=== PATIENT | male | born 1935 | race Caucasian/White ===

== ENCOUNTER 2022-03-19 11:54 | Outpatient (CLI) | payer OTHER | END 2022-03-19 11:55 | disposition home or self-care (01) | LOC: NAV RAD 11:54 | PROVIDERS: ATTEND Family Medicine | DX: M46.1 Sacroiliitis, not elsewhere classified (principal); R06.09 Other forms of dyspnea; M34.9 Systemic sclerosis, unspecified | CPT/HCPCS: 71046; 72170; 72202 ==

== ENCOUNTER 2022-06-16 09:56 | Inpatient (IN) | payer MEDICARE ==
[2022-06-16] MEDS ORDERED: Acetaminophen 325 MG TAB PO PRN (15:28)
[2022-06-16] MEDS ORDERED: Albuterol 200 PUFF (6.7GM INHALER) INH PRN (16:28)
[2022-06-16] MEDS ORDERED: Ondansetron ODT 4 MG TAB PO PRN (16:32)
[2022-06-16] MEDS: Atorvastatin Calcium 10 MG TAB PO SCH (20:26)
[2022-06-16] MEDS: Benzonatate 100 MG CAP PO SCH (20:26)
[2022-06-16] MEDS: guaiFENesin/DM ER PO SCH (20:26)
[2022-06-17] MEDS ORDERED: FLU VACC QS2022-23(65YR UP)/PF 240 MCG/0.7 ML SYRINGE IM ONE (09:00)
[2022-06-17] MEDS ORDERED: Lisinopril 10 MG TAB PO SCH ×2 (09:00→11:15)
[2022-06-17] MEDS: Fluticasone Propionate Nasal Spray 16 gm Bottle NASAL SCH (09:52)
[2022-06-17] MEDS: Zinc Sulfate 220 MG CAP PO SCH (09:54)
[2022-06-17] MEDS: guaiFENesin/DM ER PO SCH ×2 (09:54→21:20)
[2022-06-17] MEDS: Ascorbic Acid 500 mg Chewable Tablet PO SCH (09:54)
[2022-06-17] MEDS: Cholecalciferol 1,000 UNITS (25 MCG) TAB PO SCH (09:54)
[2022-06-17] MEDS: Aspirin 81 mg Enteric Coated Tablet PO SCH (09:55)
[2022-06-17] MEDS: Benzonatate 100 MG CAP PO SCH ×3 (09:55→21:20)
[2022-06-17 18:37] VITALS: BMI 34.0
[2022-06-17] MEDS: Atorvastatin Calcium 10 MG TAB PO SCH (21:20)
[2022-06-18 06:04] LABS: #Lymphocytes 0.8 thou/uL (1.20-3.40); #Monocytes 0.8 thou/uL (0.11-0.59); #Neutrophils 8.1 thou/uL (1.40-6.50); %Basophils 0.3 % (0.0-1.0); %Eosinophils 0.2 % (0.0-10.0); %Lymphocytes 8.1 % (21.0-51.0); %Monocytes 8.3 % (0.0-10.0); %Neutrophils 83.1 % (42.0-75.0); Mean Corpuscular HGB CONC 33.6 g/dL (32.0-36.0); Mean Corpuscular Hemoglobin 30.9 pg (27.0-31.0); Mean Corpuscular Volume 92.1 fl (78.0-98.0); Mean Platelet Volume 7.4 fL (7.4-10.4); Platelet Count 182 10x3/uL (130-400); RBC Distribution Width 12.2 % (11.5-14.5); Red Blood Cell (RBC) Count 4.21 mill/uL (4.70-6.10); White Blood Cell (WBC) Count 9.7 10x3/uL (4.8-10.8)
[2022-06-18 06:07] LABS: Anion Gap 14 mmol/L (10-20); BUN (Urea Nitrogen) 23 mg/dL (8.4-25.7); Calc. Creatinine Clearance 80 mL/min (70-130); Calcium 8.3 mg/dL (7.8-10.44); Carbon Dioxide 20 mmol/L (23-31); Chloride 107 mmol/L (98-107); Estimated GFR 71; Glucose 120 mg/dL (83-110); Potassium 3.7 mmol/L (3.5-5.1); Sodium 137 mmol/L (136-145)
[2022-06-18] MEDS: Ascorbic Acid 500 mg Chewable Tablet PO SCH (09:49)
[2022-06-18] MEDS: guaiFENesin/DM ER PO SCH ×2 (09:50→22:15)
[2022-06-18] MEDS: Aspirin 81 mg Enteric Coated Tablet PO SCH (09:50)
[2022-06-18] MEDS: Lisinopril 10 MG TAB PO SCH (09:50)
[2022-06-18] MEDS: Zinc Sulfate 220 MG CAP PO SCH (09:50)
[2022-06-18] MEDS: Benzonatate 100 MG CAP PO SCH ×3 (09:51→22:15)
[2022-06-18] MEDS: Fluticasone Propionate Nasal Spray 16 gm Bottle NASAL SCH (09:51)
[2022-06-18] MEDS: Cholecalciferol 1,000 UNITS (25 MCG) TAB PO SCH (09:51)
[2022-06-18 19:56] LABS: Bilirubin Negative (Negative); Blood, Urine Negative (Negative); Glucose, Urine (Dipstick) Negative (Negative); Ketone, Urine Negative (Negative); Leukocyte Trace (Negative); Nitrite Negative (Negative); Protein, Urine (Dipstick) Trace mg/dL (Neg-Trace); pH, Urine 5.5 (5.0-9.0)
[2022-06-18 19:57] LABS: Clarity SL HAZY (Clear)
[2022-06-18 20:16] LABS: Bacteria/HPF 3+ HPF (None Seen); Squamous Epithelial 0-3 HPF (0-3)
[2022-06-18] MEDS: Atorvastatin Calcium 10 MG TAB PO SCH (22:15)
[2022-06-18] MEDS ORDERED: Ciprofloxacin 500 MG TAB PO SCH (23:15)
[2022-06-19] MEDS: Ciprofloxacin 500 MG TAB PO SCH ×2 (05:39→21:28)
[2022-06-19] MEDS: guaiFENesin/DM ER PO SCH ×2 (09:35→21:28)
[2022-06-19] MEDS: Benzonatate 100 MG CAP PO SCH ×3 (09:35→21:28)
[2022-06-19] MEDS: Cholecalciferol 1,000 UNITS (25 MCG) TAB PO SCH (09:35)
[2022-06-19] MEDS: Zinc Sulfate 220 MG CAP PO SCH (09:35)
[2022-06-19] MEDS: Ascorbic Acid 500 mg Chewable Tablet PO SCH (09:35)
[2022-06-19] MEDS: Lisinopril 10 MG TAB PO SCH (09:36)
[2022-06-19] MEDS: Fluticasone Propionate Nasal Spray 16 gm Bottle NASAL SCH (09:37)
[2022-06-19] MEDS: Aspirin 81 mg Enteric Coated Tablet PO SCH (09:38)
[2022-06-19] MEDS: Atorvastatin Calcium 10 MG TAB PO SCH (21:28)
[2022-06-19] MEDS ORDERED: Hydrocortisone 1% Cream 30 GM TUBE TOP SCH (22:00)
[2022-06-20] MEDS: Ciprofloxacin 500 MG TAB PO SCH (05:26)
[2022-06-20] MEDS: Aspirin 81 mg Enteric Coated Tablet PO SCH (09:40)
[2022-06-20] MEDS: Zinc Sulfate 220 MG CAP PO SCH (09:40)
[2022-06-20] MEDS: Cholecalciferol 1,000 UNITS (25 MCG) TAB PO SCH (09:40)
[2022-06-20] MEDS: Ascorbic Acid 500 mg Chewable Tablet PO SCH (09:40)
[2022-06-20] MEDS: Lisinopril 10 MG TAB PO SCH (09:40)
[2022-06-20] MEDS: Benzonatate 100 MG CAP PO SCH ×3 (09:40→20:59)
[2022-06-20] MEDS: guaiFENesin/DM ER PO SCH ×2 (09:41→20:59)
[2022-06-20] MEDS: Fluticasone Propionate Nasal Spray 16 gm Bottle NASAL SCH (09:48)
[2022-06-20] MEDS: Hydrocortisone 1% Cream 30 GM TUBE TOP SCH ×2 (09:48→20:59)
[2022-06-20] MEDS: Cefdinir 300 MG CAP PO SCH (20:59)
[2022-06-20] MEDS: Atorvastatin Calcium 10 MG TAB PO SCH (20:59)
[2022-06-21 05:54] LABS: #Basophils 0.1 thou/uL (0.0-0.2); #Eosinphils 0.2 thou/uL (0.0-0.7); #Lymphocytes 1.3 thou/uL (1.20-3.40); #Monocytes 0.9 thou/uL (0.11-0.59); #Neutrophils 4.8 thou/uL (1.40-6.50); %Basophils 0.9 % (0.0-1.0); %Eosinophils 2.9 % (0.0-10.0); %Lymphocytes 17.6 % (21.0-51.0); %Monocytes 12.1 % (0.0-10.0); %Neutrophils 66.6 % (42.0-75.0); Hemoglobin 11.9 g/dL (14.0-18.0); Mean Corpuscular HGB CONC 32.2 g/dL (32.0-36.0); Mean Corpuscular Hemoglobin 30.3 pg (27.0-31.0); Mean Corpuscular Volume 94.1 fl (78.0-98.0); Mean Platelet Volume 7.3 fL (7.4-10.4); Platelet Count 247 10x3/uL (130-400); RBC Distribution Width 12.3 % (11.5-14.5); Red Blood Cell (RBC) Count 3.95 mill/uL (4.70-6.10); White Blood Cell (WBC) Count 7.2 10x3/uL (4.8-10.8)
[2022-06-21 06:03] LABS: Anion Gap 11 mmol/L (10-20); BUN (Urea Nitrogen) 18 mg/dL (8.4-25.7); Calc. Creatinine Clearance 74 mL/min (70-130); Calcium 8.1 mg/dL (7.8-10.44); Carbon Dioxide 21 mmol/L (23-31); Chloride 108 mmol/L (98-107); Estimated GFR 65; Glucose 110 mg/dL (83-110); Potassium 3.4 mmol/L (3.5-5.1); Sodium 137 mmol/L (136-145)
[2022-06-21] MEDS: Hydrocortisone 1% Cream 30 GM TUBE TOP SCH ×2 (09:47→21:13)
[2022-06-21] MEDS: Cefdinir 300 MG CAP PO SCH ×2 (09:49→21:13)
[2022-06-21] MEDS: Benzonatate 100 MG CAP PO SCH ×3 (09:49→21:13)
[2022-06-21] MEDS: Aspirin 81 mg Enteric Coated Tablet PO SCH (09:49)
[2022-06-21] MEDS: Cholecalciferol 1,000 UNITS (25 MCG) TAB PO SCH (09:49)
[2022-06-21] MEDS: Zinc Sulfate 220 MG CAP PO SCH (09:49)
[2022-06-21] MEDS: guaiFENesin/DM ER PO SCH ×2 (09:49→21:13)
[2022-06-21] MEDS: Ascorbic Acid 500 mg Chewable Tablet PO SCH (09:49)
[2022-06-21] MEDS: Lisinopril 20 MG TAB PO SCH (09:50)
[2022-06-21] MEDS: Fluticasone Propionate Nasal Spray 16 gm Bottle NASAL SCH (09:55)
[2022-06-21] MEDS ORDERED: Potassium Chloride 20 MEQ TAB PO SCH (13:30)
[2022-06-21] MEDS: Atorvastatin Calcium 10 MG TAB PO SCH (21:13)
[2022-06-22 06:08] LABS: Anion Gap 11 mmol/L (10-20); BUN (Urea Nitrogen) 17 mg/dL (8.4-25.7); Calc. Creatinine Clearance 75 mL/min (70-130); Calcium 8.4 mg/dL (7.8-10.44); Carbon Dioxide 22 mmol/L (23-31); Chloride 109 mmol/L (98-107); Estimated GFR 67; Glucose 105 mg/dL (83-110); Potassium 3.9 mmol/L (3.5-5.1); Sodium 138 mmol/L (136-145)
[2022-06-22 08:17] VITALS: BP 156/72; TEMP 97.7
[2022-06-22] MEDS: guaiFENesin/DM ER PO SCH (09:13)
[2022-06-22] MEDS: Zinc Sulfate 220 MG CAP PO SCH (09:13)
[2022-06-22] MEDS: Cefdinir 300 MG CAP PO SCH (09:13)
[2022-06-22] MEDS: Lisinopril 20 MG TAB PO SCH (09:14)
[2022-06-22] MEDS: Benzonatate 100 MG CAP PO SCH (09:15)
[2022-06-22] MEDS: Aspirin 81 mg Enteric Coated Tablet PO SCH (09:15)
[2022-06-22] MEDS: Ascorbic Acid 500 mg Chewable Tablet PO SCH (09:15)
[2022-06-22] MEDS: Cholecalciferol 1,000 UNITS (25 MCG) TAB PO SCH (09:15)
[2022-06-22] MEDS: Fluticasone Propionate Nasal Spray 16 gm Bottle NASAL SCH (09:16)
[2022-06-22] MEDS: Hydrocortisone 1% Cream 30 GM TUBE TOP SCH (09:17)
== END 2022-06-22 10:17 | disposition home health service (06) | DRG 948 ==
LOC: NAV ACUTE 15:32
PROVIDERS: ADMIT Student in an Organized Health Care Education/Training Program; ATTEND Family Medicine
DX: R53.81 Other malaise (principal); N39.0 Urinary tract infection, site not specified; R53.1 Weakness; E78.5 Hyperlipidemia, unspecified; I10 Essential (primary) hypertension; F03.90 Unspecified dementia, unspecified severity, without behavioral disturbance, psychotic disturbance, mood disturbance, and anxiety; E66.9 Obesity, unspecified; Z90.89 Acquired absence of other organs; Z86.16 Personal history of COVID-19; Z87.01 Personal history of pneumonia (recurrent); Z79.899 Other long term (current) drug therapy; Z79.82 Long term (current) use of aspirin; Z98.1 Arthrodesis status; Z83.3 Family history of diabetes mellitus; Z82.49 Family history of ischemic heart disease and other diseases of the circulatory system
CPT/HCPCS: 36415; 80048; 81003; 81015; 85025; 87077; 87086; 87186; J1650